=== PATIENT | female | born 1965 | race Two or more races ===

== ENCOUNTER 2024-11-22 09:09 | Emergency (ER) | payer OTHER ==
[~2024-11-22] VITALS: Ht 165.1 cm; Wt 72.1 kg
[2024-11-22] MEDS ORDERED: PROAIR RESPICL90 MCG (09:23)
[2024-11-22] MEDS ORDERED: LEVALBUTEROL HCL 0.63 MG/3 ML SOLUTION IH SCH (09:30)
[2024-11-22] MEDS ORDERED: METHYLPREDNISOLONE SOD SUCC 125 MG VIAL IV ONE (09:30)
[2024-11-22] MEDS ORDERED: METHYLPREDNISOLONE SOD SUCC 125 MG VIAL ONE (09:31)
[2024-11-22] MEDS ORDERED: WATER FOR INJ.,BACTERIOSTATIC 30 ML VIAL IJ ONE (09:32)
[2024-11-22] MEDS ORDERED: CETIRIZINE HCL 5MG/5ML BLIST.PACK PO ONE (09:34)
[2024-11-22] MEDS ORDERED: CETIRIZINE HCL 5 MG/5 ML ML PO ONE (09:45)
[2024-11-22] MEDS ORDERED: LEVALBUTEROL HCL 0.63 MG/3 ML SOLUTION IH ONE (09:52)
[2024-11-22 10:32] LABS: COVID-19 AG NEGATIVE (NEGATIVE)
[2024-11-22 10:39] LABS: ABG PH 7.413 (7.35-7.45); ABG PO2 71.4 mmHg (80-100)
[2024-11-22 10:40] LABS: BICARBONATE 24.4 mmol/l (23-25); o2 21 %
[2024-11-22 10:49] LABS: BUN CREA RATIO 12.0 (7.0-25.0); CREATININE SERUM 0.66 mg/dL (0.55-1.02); GFR 91.35; OSMOLALITY SERUM 290.0 MOSM/KG (275-295)
[2024-11-22 10:50] LABS: GLUCOSE FASTING 282.0 mg/dL (65-100)
[2024-11-22 11:37] LABS: BASO % 0.6 % (0.1-1.2); EOS # 0.71 (0.04-0.54); EOS % 6.9 % (0.7-7.0); LYMPH # 3.80 (1.18-3.74); LYMPH % 37.0 % (19.3-53.1); MEAN PLATELET VOLUME 10.50 fl (9.4-12.4); MONO # 0.55 (0.24-0.82); MONO % 5.4 % (4.7-12.5); NEUT # 5.09 (1.56-6.13); NEUT % 49.4 % (34.0-71.1); RED CELL DISTRIBUTION WIDTH 13.8 % (11.6-14.4)
== END 2024-11-22 12:13 | disposition home or self-care (01) ==
LOC: ER 09:09
PROVIDERS: Emergency Medicine
DX: J45.909 Unspecified asthma, uncomplicated (principal); Z20.822 Contact with and (suspected) exposure to COVID-19; Z87.09 Personal history of other diseases of the respiratory system